=== PATIENT | female | born 1985 | race Caucasian/White ===

== ENCOUNTER 2018-08-25 13:48 | Emergency (ER) | payer OTHER ==
[2018-08-25] MEDS ORDERED: Fluconazole 100 MG Tab PO ONE ×2 (14:11→14:14)
--- NOTE | 2018-08-25 14:21 | EDM.PDOC ---
ED HPI GENERAL MEDICAL PROBLEM - General Chief Complaint: Genitourinary Problem Stated Complaint: UTI Time Seen by Provider: 08/25/18 14:04 Source of Information: Reports: Patient History Limitations: Reports: No Limitations - History of Present Illness INITIAL COMMENTS - FREE TEXT/NARRATIVE: Patient presents with complaints of white cottage cheese like discharge vaginally. Is on tetracycline and flagyl for treatment of H. Pylori. Symptoms started yesterday. She has itching. No pain on urination, no frequency, no bladder complaints. She has no other complaints today. Onset: Gradual Onset Date: 08/24/18 - Related Data Allergies Allergy/AdvReac Type Severity Reaction Status Date / Time aspirin Allergy Anaphylactic Verified 08/25/18 13:56 Shock cimetidine Allergy Diaphoresis Verified 08/25/18 13:56 naproxen Allergy Lethargy Verified 08/25/18 13:56 orange Allergy Hives Verified 08/25/18 13:56 Home Meds: Home Meds Desvenlafaxine Succinate [Pristiq] 1 tab PO DAILY 08/25/18 [History] Fluticasone/Salmeterol [Advair 500-50] 2 puff INH BID 08/25/18 [History] OXcarbazepine [Oxcarbazepine] 1 tab PO BID 08/25/18 [History] Omeprazole 1 tab PO BID 08/25/18 [History] busPIRone [Buspar] 0.5 - 1 tab PO BID 08/25/18 [History] diphenhydrAMINE [Benadryl] 1 tab PO DAILY 08/25/18 [History] ED ROS GENERAL - Review of Systems Review Of Systems: See Below Constitutional: Reports: No Symptoms HEENT: Reports: No Symptoms Respiratory: Reports: No Symptoms Cardiovascular: Reports: No Symptoms Endocrine: Reports: No Symptoms GI/Abdominal: Reports: No Symptoms : Reports: Other (white discharge, described as yeast infection) Skin: Reports: No Symptoms Neurological: Reports: No Symptoms Psychiatric: Reports: No Symptoms Hematologic/Lymphatic: Reports: No Symptoms Immunologic: Reports: No Symptoms ED EXAM, RENAL/ - Physical Exam Exam: See Below Exam Limited By: No Limitations General Appearance: Alert, WD/WN, No Apparent Distress Head: Atraumatic, Normocephalic Neck: Normal Inspection, Supple, Non-Tender, Full Range of Motion Respiratory/Chest: No Respiratory Distress, Lungs Clear, Normal Breath Sounds, No Accessory Muscle Use, Chest Non-Tender Cardiovascular: Normal Peripheral Pulses, Regular Rate, Rhythm, No Edema, No Gallop, No JVD, No Murmur, No Rub Neurological: Alert, Oriented, CN II-XII Intact, Normal Cognition, Normal Gait, Normal Reflexes, No Motor/Sensory Deficits Psychiatric: Normal Affect, Normal Mood Skin Exam: Warm, Dry, Intact, Normal Color, No Rash Lymphatic: No Adenopathy Course - Vital Signs Last Recorded V/S: Last Vital Signs Temp 36.2 C 08/25/18 14:05 Pulse 86 08/25/18 14:05 Resp 12 08/25/18 14:05 BP 116/67 08/25/18 14:05 Pulse Ox 98 08/25/18 14:05 - Orders/Labs/Meds Orders: Active Orders 24 hr Category Date Time Status URINALYSIS W/MICROSCOPIC [UA W/MICROSCOPIC] [URIN] Stat Lab 08/25/18 14:04 Ordered Meds: Medications Discontinued Medications Generic Name Dose Route Start Last Admin Trade Name Alysia PRN Reason Stop Dose Admin Fluconazole 100 mg 08/25/18 14:11 Diflucan PO 08/25/18 14:12 ONETIME ONE Fluconazole 150 mg 08/25/18 14:14 Diflucan PO 08/25/18 14:15 ONETIME ONE Departure - Departure Time of Disposition: 14:26 Disposition: Home, Self-Care 01 Condition: Good Clinical Impression: Vaginal candidosis - Discharge Information *PRESCRIPTION DRUG MONITORING PROGRAM REVIEWED*: Not Applicable *COPY OF PRESCRIPTION DRUG MONITORING REPORT IN PATIENT ABI: Not Applicable Instructions: Vaginal Yeast Infection, Adult Additional Instructions: Plan 1. Stay well hydrated 2. Continue to take your antibiotics and probiotics. Add yogurt 3. You received 1 dose of diflucan today. If you are still suffering from yeast infection symptoms mid week, I also included a prescription for an additional dose 4. Follow up with your primary for any additional symptom management - Problem List & Annotations (1) Vaginal candidosis SNOMED Code(s): 99580209 Code(s): B37.3 - CANDIDIASIS OF VULVA AND VAGINA Status: Acute Priority: Low Current Visit: Yes - Problem List Review Problem List Initiated/Reviewed/Updated: Yes - My Orders Last 24 Hours: My Active Orders 08/25/18 14:04 URINALYSIS W/MICROSCOPIC [UA W/MICROSCOPIC] [URIN] Stat - Assessment/Plan Last 24 Hours: My Active Orders 08/25/18 14:04 URINALYSIS W/MICROSCOPIC [UA W/MICROSCOPIC] [URIN] Stat Assessment:: vaginal candidosis Plan: Plan 1. Stay well hydrated 2. Continue to take your antibiotics and probiotics. Add yogurt 3. You received 1 dose of diflucan today. If you are still suffering from yeast infection symptoms mid week, I also included a prescription for an additional dose 4. Follow up with your primary for any additional symptom management
== END 2018-08-25 14:38 | disposition home or self-care (01) ==
LOC: VM.ED 13:48
DX: B37.3 Candidiasis of vulva and vagina (principal); Z88.6 Allergy status to analgesic agent; Z88.8 Allergy status to other drugs, medicaments and biological substances; Z91.018 Allergy to other foods; Z79.899 Other long term (current) drug therapy
CPT/HCPCS: 81001; 99283; A9270